=== PATIENT | female | born 1945 | race Caucasian/White ===

== ENCOUNTER 2018-01-08 22:10 | Emergency (ER) | payer MEDICARE, BC ==
[~2018-01-08] VITALS: Ht 162.6 cm; Wt 53.1 kg
[2018-01-08 22:10] VITALS: BP 132/79
[~2018-01-08 22:10] MED LIST: ALPR0.5T PO; CITA20TA16 PO; DICY20TA11 PO; HYDR-3980 PO; OXYC20TA58 PO; SIMV20TA6 PO
[2018-01-08] MEDS ORDERED: BENZOIN COMPOUND TINCT 60 ML BOTTLE ONE (23:17)
--- NOTE | 2018-01-08 23:38 | NUR ---
DR SOTELO AT BEDSIDE FOR LACERATION REPAIR.
== END 2018-01-08 23:59 | disposition home or self-care (01) ==
LOC: ER 22:12
DX: S01.81XA Laceration without foreign body of other part of head, initial encounter (principal); M48.00 Spinal stenosis, site unspecified; G89.29 Other chronic pain; M19.90 Unspecified osteoarthritis, unspecified site; F32.9 Major depressive disorder, single episode, unspecified; Z98.890 Other specified postprocedural states; W06.XXXA Fall from bed, initial encounter; Y93.89 Activity, other specified; Y92.092 Bedroom in other non-institutional residence as the place of occurrence of the external cause; Y99.8 Other external cause status
CPT/HCPCS: 12013; 99284; A4606; A6402; A6403; Z7610